=== PATIENT | female | born 1975 | race Two or more races ===

== ENCOUNTER → 2017-01-02 | Outpatient (CLI) | payer OTHER ==
--- NOTE | 2017-01-02 16:23 | US ---
EXAMINATION TYPE: US thyroid st tissue head/neck DATE OF EXAM: 01/02/2017 COMPARISON: 10/14/2012 CLINICAL HISTORY: 41-year-old female Thyroid nodule E04.1. Pt states h/o thyroid nodules, pt has no p revious here. TECHNIQUE: Multiple sonographic images of the thyroid gland are obtained. FINDINGS: Right Lobe: 4.5 x 1.6 x 1.7 cm Left Lobe: 4.6 x 1.2 x 1.6 cm Isthmus Thickness: 0.3 cm There is slight diffuse glandular heterogeneity. No discrete nodule is seen. The previously seen nodu les in 2012 are no longer identified. Bilateral neck scanned, no evidence of lymphadenopathy. IMPRESSION: The previously seen 2013 nodules are no longer seen. No discrete nodule on the present exam.
== END | disposition home or self-care (01) ==
LOC: RADUSWWP 14:26
PROVIDERS: ATTEND Pediatrics
DX: E04.1 Nontoxic single thyroid nodule (principal)
CPT/HCPCS: 76536

== ENCOUNTER → 2019-11-12 | Outpatient (CLI) | payer OTHER ==
--- NOTE | 2019-11-17 08:04 | MM ---
Reason for exam: screening (asymptomatic). Last mammogram was performed 4 years and 8 months ago. History: Benign excisional biopsy of the right breast, 2013. Physical Findings: A clinical breast exam by your physician is recommended on an annual basis and results should be correlated with mammographic findings. MG Screening Mammo w CAD Bilateral CC and MLO view(s) were taken. Prior study comparison: March 28, 2015, bilateral MG 3d diag mammo w/cad [facility]. February 19, 2014, bilateral MG diagnostic mammo w CAD [facility]. Finding: There are new equal density (isodense), obscured oval masses in both breasts. New finding since March 28, 2015 and February 19, 2014. ASSESSMENT: Incomplete: need additional imaging evaluation, BI-RAD 0 RECOMMENDATION: Special view mammogram of both breasts. If lesion persists on supplemental views, image directed ultrasound is recommended. [facility] will attempt to contact patient to return for supplemental views and ultrasound if indicated.
== END | disposition home or self-care (01) ==
LOC: RADMAMWWP 15:21
PROVIDERS: ATTEND Pediatrics
DX: Z12.31 Encounter for screening mammogram for malignant neoplasm of breast (principal)
CPT/HCPCS: 77067

== ENCOUNTER → 2019-11-20 | Outpatient (CLI) | payer OTHER ==
--- NOTE | 2019-11-20 12:09 | MM ---
Reason for exam: additional evaluation requested from abnormal screening. Last mammogram was performed less than 1 month ago. History: Family history of breast cancer in 2 maternal cousins. Benign excisional biopsy of the right breast, 2013. Physical Findings: Nurse did not find any significant physical abnormalities on exam. MG Work Up Mamm w CAD BILAT Bilateral spot compression CC, spot compression MLO, and LM view(s) were taken. Prior study comparison: November 12, 2019, bilateral MG screening mammo w CAD. March 28, 2015, bilateral MG 3d diag mammo w/cad [facility]. Finding: There is a persistent 5-6mm equal density (isodense), circumscribed oval mass in the upper outer quadrant, middle position of the left breast. Focal asymmetry right upper inner quadrant, follow up with ultrasound. New finding since March 28, 2015. These results were verbally communicated with the patient and result sheet given to the patient on 11/20/19. ASSESSMENT: Incomplete: need additional imaging evaluation, BI-RAD 0 RECOMMENDATION: Ultrasound of both breasts.
--- NOTE | 2019-11-20 12:11 | USB ---
Reason for exam: additional evaluation requested from abnormal screening. History: Family history of breast cancer in 2 maternal cousins. Benign excisional biopsy of the right breast, 2013. US Breast Workup Limited RUTHIE Right limited breast ultrasound including focal area of concern, retroareolar and axilla demonstrates a 0.6 x 0.7 x 0.4cm cystic lesion at 1 o'clock. Left limited breast ultrasound including focal area of concern, retroareolar and axilla demonstrates a 0.5 x 0.5 x 0.2cm cystic lesion at 9 o'clock, a 0.4 x 0.5 x 0.3cm cystic lesion at 12 o'clock and a 0.6 x 0.5 x 0.2cm cystic lesion at 2 o'clock. These results were verbally communicated with the patient and result sheet given to the patient on 11/20/19. ASSESSMENT: Benign, BI-RAD 2 RECOMMENDATION: Follow-up diagnostic mammogram of both breasts in 6 months.
== END | disposition home or self-care (01) ==
LOC: RADMAMWWP 09:02
PROVIDERS: ATTEND Pediatrics
DX: R92.8 Other abnormal and inconclusive findings on diagnostic imaging of breast (principal)
CPT/HCPCS: 77066

== ENCOUNTER → 2019-11-23 | Outpatient (CLI) | payer OTHER ==
--- NOTE | 2019-11-23 16:06 | US ---
EXAMINATION TYPE: US thyroid st tissue head/neck DATE OF EXAM: 11/23/2019 COMPARISON: US 2017 CLINICAL HISTORY: 44-year-old female E04.1 thyroid nodule. Family history of thyroid CA TECHNIQUE: Multiple sonographic images of the thyroid gland are obtained. FINDINGS: GLAND SIZE: Right Lobe: 4.8 x 1.3 x 1.7 cm Overall Parenchyma: heterogenous Left Lobe: 4.9 x 1.3 x 1.5 cm Overall Parenchyma: heterogeneous Isthmus Thickness: 0.3 cm NODULES RIGHT: # of nodules measured on right: 0 LEFT: # of nodules measured on left: 0 ISTHMUS: # of nodules measured in the isthmus: 0 Bilateral neck scanned, no evidence of lymphadenopathy. IMPRESSION: No discrete nodules. Thyroid gland measurements at the upper limits of normal.
== END | disposition home or self-care (01) ==
LOC: RADUSWWP 15:02
PROVIDERS: ATTEND Pediatrics
DX: E04.1 Nontoxic single thyroid nodule (principal)
CPT/HCPCS: 76536

== ENCOUNTER → 2021-02-16 | Outpatient (CLI) | payer BC ==
--- NOTE | 2021-02-17 10:27 | MM ---
Reason for exam: additional evaluation requested from prior study. Last mammogram was performed 1 year and 3 months ago. History: Family history of breast cancer in 2 maternal cousins. Benign excisional biopsy of the right breast, 2013. Physical Findings: Nurse did not find any significant physical abnormalities on exam. MG Diagnostic Mammo w CAD R[facility] Bilateral CC and MLO view(s) were taken. Prior study comparison: November 20, 2019, bilateral MG work up mamm w CAD BILAT. November 12, 2019, bilateral MG screening mammo w CAD. March 28, 2015, bilateral MG 3d diag mammo w/cad [facility]. February 19, 2014, bilateral MG diagnostic mammo w CAD [facility]. The breast tissue is heterogeneously dense. This may lower the sensitivity of mammography. Finding: There are typically indeterminate benign calcifications in the left breast. No significant changes in finding since November 20, 2019, November 12, 2019, March 28, 2015, and February 19, 2014. These results were verbally communicated with the patient and result sheet given to the patient on 02/16/21. ASSESSMENT: Benign, BI-RAD 2 RECOMMENDATION: Routine screening mammogram of both breasts in 1 year.
== END | disposition home or self-care (01) ==
LOC: RADMAMWWP 14:57
PROVIDERS: ATTEND Pediatrics
DX: R92.1 Mammographic calcification found on diagnostic imaging of breast (principal); Z80.3 Family history of malignant neoplasm of breast
CPT/HCPCS: 77066

== ENCOUNTER → 2024-11-25 | Outpatient (CLI) | payer BC ==
--- NOTE | 2024-11-25 14:40 | MM ---
Reason for Exam: Screening (asymptomatic). Last mammogram was performed 3 year(s) and 10 month(s) ago. Patient History: Menarche at age 11. First Full-Term at age 19. Premenopausal. Patient has history of breast feeding. 2013, Benign Excisional Biopsy on the right side. Maternal cousin had breast cancer. Maternal cousin had breast cancer. Last menstrual period: 11/15/2024 Risk Values: Amparo 5 year model risk: 1.1%. NCI Lifetime model risk: 9.3%. Prior Study Comparison: 03/28/2015 Bilateral Diagnostic Mammogram, [facility]. 11/12/2019 Bilateral Screening Mammogram, [facility]. 11/20/2019 Bilateral Diagnostic Mammogram, [facility]. 02/16/2021 Bilateral Diagnostic Mammogram, [facility]. Tissue Density: The breasts are heterogeneously dense, which may obscure small masses. Findings: Analyzed By CAD. There is no suspicious group of microcalcifications or new suspicious mass in either breast. Overall Assessment: Negative, BI-RAD 1 Management: Screening Mammogram of both breasts in 1 year. Patient should continue monthly self-breast exams. A clinical breast exam by your physician is recommended on an annual basis. This exam should not preclude additional follow-up of suspicious palpable abnormalities. Note on Amparo scores and lifetime risk: 1. A Amparo score greater than 3% is considered moderate risk. If this is the case, consider specialist referral to assess eligibility for a risk reducing agent. 2. If overall lifetime risk for the development of breast cancer is 20% or higher, the patient may qualify for future screening with alternating mammogram and breast MRI. [facility], , 11/25/2024 9:03 AM. Electronically signed and approved by: Bárbara Capuot M.D. Radiologist
== END | disposition home or self-care (01) ==
LOC: RADMAMWWP 08:17
PROVIDERS: ATTEND Obstetrics & Gynecology
DX: Z12.31 Encounter for screening mammogram for malignant neoplasm of breast (principal); R92.333 Mammographic heterogeneous density, bilateral breasts; Z80.3 Family history of malignant neoplasm of breast
CPT/HCPCS: 77063; 77067